=== PATIENT | female | born 1945 | race Caucasian/White ===

== ENCOUNTER 2017-02-02 22:35 | Emergency (ER) | payer MEDICARE, OTHER ==
[2017-02-02] MEDS ORDERED: KETOROLAC TROMETHAMINE INJ/PF 30 MG/1 ML SDV IV ONE (22:54)
--- NOTE | 2017-02-02 22:57 | ER Document Report ---
ED Hip Pain/Injury - General Chief Complaint: Hip Pain Stated Complaint: LEFT LEG PAIN Mode of Arrival: Medic Information source: Patient TRAVEL OUTSIDE OF THE [place] IN LAST 30 DAYS: No - HPI Patient complains to provider of: Hip Notes: Patient arrives with complaints of pain to the low back and left hip that started yesterday. She denies any injuries or falls. She states that the pain has been constant for the last day. Pain is worse when she is sitting up and seems to be better when laying flat. She denies any blood thinners. She denies any fever or redness. She denies any abdominal pain. She denies any nausea, vomiting, diarrhea. She denies any dysuria or hematuria. She denies any bowel or bladder dysfunction. She denies any numbness, tingling, weakness to the lower extremities. No chest pain or shortness of breath. No other complaints at this time. - Related Data Allergies/Adverse Reactions: codeine Allergy (Verified 02/03/17 00:29) latex Allergy (Verified 02/03/17 00:29) Sulfa (Sulfonamide Antibiotics) Allergy (Verified 02/03/17 00:29) Home Medications: Current Home Medications Aspirin [Aspirin 81 mg Chewable Tablet] 81 mg PO DAILY 02/03/17 [History] Atorvastatin Calcium 20 mg PO QHS 02/03/17 [History] Furosemide [Lasix] 40 mg PO DAILY 02/03/17 [History] Gabapentin 300 mg PO BID 02/03/17 [History] Glimepiride [Amaryl] 2 mg PO DAILY 02/03/17 [History] Lisinopril/Hydrochlorothiazide [Lisinopril-Hctz 20-25 mg Tab] 1 tab PO DAILY [History] Metformin HCl 500 mg PO BID 02/03/17 [History] Oxybutynin Chloride [Ditropan Xl] 1 tab PO DAILY 02/03/17 [History] Sertraline HCl 50 mg PO DAILY 02/03/17 [History] Tramadol HCl [Tramadol HCl ER] 100 mg PO DAILY 02/03/17 [History] Past Medical History - Social History Smoking Status: Unknown if Ever Smoked Family History: Reviewed & Not Pertinent Patient has suicidal ideation: No Patient has homicidal ideation: No Renal/ Medical History: Denies: Hx Peritoneal Dialysis Review of Systems - Review of Systems -: Yes All other systems reviewed and negative Physical Exam - Vital signs Vitals: Temp Pulse Resp BP Pulse Ox 98.3 F 88 16 120/76 92 02/02/17 22:48 02/02/17 22:48 02/02/17 22:48 02/02/17 22:48 02/02/17 22:48 - Notes Notes: GENERAL: alert, cooperative, nontoxic, no distress. HEAD: normocephalic, atraumatic EYES: conjunctiva pink without discharge, no external redness or swelling. EARS: no external swelling, no external redness NOSE: atraumatic, no external swelling MOUTH/THROAT: mucous membranes moist and pink, posterior pharynx without erythema, swelling, exudate. No trismus or drooling. NECK: soft, supple, full range of motion, no meningismus. CHEST: no distress, lungs clear and equal throughout. No wheezing, rales, rhonchi. CARDIAC: regular rate and rhythm, no murmur, normal capillary refill, normal pulses. No peripheral edema noted. ABDOMEN: Soft, nontender. No mass, no pulsatile mass. BACK: full range of motion, no CVA tenderness. Tenderness to palpation of the left SI joint and left sciatic notch. EXTREMITIES: full range of motion of all extremities. No redness, no swelling. 5 flexion extension of the lower extremities bilaterally. NEURO: alert and oriented &O3, no focal deficits, positive straight leg raise on the left. Tenderness with palpation of the left SI joint or sciatic notch. Patellar and Achilles tendon reflexes are +2 bilaterally. Patient has normal sensation with no saddle anesthesia. PYSCH: appropriate mood, affect. Patient is cooperative. SKIN: pink, warm, dry, no rash. Course - Re-evaluation Re-evalutation: 02/03/17 00:35 Patient is nontoxic. Stable vitals. The patient has nontraumatic left hip and low back pain. Patient has a history of arthritis. She states that she took some hydrocodone at home which did not help her pain. She was having difficulty getting up and ambulating so she called the squad. Here her x-rays are negative for any acute bony abnormality. She has a benign exam with no sign of cauda equina or epidural abscess/bleeding. She was given Toradol and was able to relate to the bathroom without significant difficulty. The patient states she is actually feeling better and would like to go home. She'll be given a dose of oxycodone here prior to being discharged home. I'll write her a small supply of oxycodone as well as NSAIDs. She was instructed to follow up with her primary care doctor at the next available appointment. Follow up sooner if she develops increased pain, high fever, abdominal pain, difficulty controlling her bowels or bladder, or any further concerns. The patient is noted to have elevated blood pressure during today's emergency department visit. The patient was informed of this finding. The patient was instructed that this may be related to pre-hypertension and requires further evaluation with a primary care provider. The patient has no hypertensive symptoms at this time. The patient's emergency department workup and current diagnosis were explained to the patient and or family. Follow-up instructions were provided. Medications if prescribed were discussed. Instructions for when to return to the emergency department including specific worrisome symptoms were discussed with the patient and/or family. - Vital Signs Vital signs: Temp Pulse Resp BP Pulse Ox 98.3 F 88 16 117/100 H 92 02/02/17 22:48 02/02/17 22:48 02/03/17 00:01 02/03/17 00:01 02/03/17 00:01 - Diagnostic Test Radiology reviewed: Reports reviewed - X-ray of the lumbar spine and left hip show no acute bony abnormality Discharge - Discharge Clinical Impression: Left hip pain Condition: Stable Disposition: HOME, SELF-CARE Instructions: Sciatica ([facility]) Additional Instructions: Take medications as prescribed. Follow up with your doctor at the next available appointment for reevaluation. Follow-up sooner for increased pain, fever, redness, swelling, difficulty controlling her bowels or bladder, or any further concerns. Your blood pressure was elevated during today's visit. Have this rechecked with your doctor. The medication you were prescribed today may cause drowsiness. Do not drive or operate heavy machinery while taking this medication. Prescriptions: Diclofenac Sodium [Voltaren] 75 mg PO BID #20 tablet. Oxycodone HCl/Acetaminophen [Percocet 5-325 mg Tablet] 1 tab PO Q4H PRN #15 tab PRN Reason: Forms: Elevated Blood Pressure
[2017-02-03] MEDS ORDERED: OXYCODONE-ACETAMINOPHEN 5-325 MG TABLET PO ONE (00:32)
[2017-02-03 00:54] VITALS: BP 100/66
== END 2017-02-03 00:54 | disposition home or self-care (01) ==
LOC: ER 22:35
DX: M25.552 Pain in left hip (principal); M54.5 Low back pain; Z88.6 Allergy status to analgesic agent; Z88.2 Allergy status to sulfonamides; Z91.040 Latex allergy status
CPT/HCPCS: 99283; 96374; 73502; 72110; J1885; A9270

== ENCOUNTER → 2018-01-06 | Outpatient (CLI) | payer MEDICARE, OTHER ==
--- NOTE | 2018-01-06 18:59 | WOMENS IMAGING REPORT ---
EXAM DESCRIPTION: BILAT SCREENING MAMMO W/CAD COMPLETED DATE/TIME: 01/06/2018 8:51 am REASON FOR STUDY: ROUTINE SCREENING;Z12.31 Z12.31 ENCNTR SCREEN MAMMOGRAM FOR MALIGNANT NEOPLASM OF TRES COMPARISON: Multiple since 2010 TECHNIQUE: Standard craniocaudal and mediolateral oblique views of each breast recorded using [employer] l acquisition. LIMITATIONS: None. FINDINGS: Findings present which are benign by mammographic criteria. No suspicious masses, calcifi cations or architectural distortion. Pertinent benign findings: Stable benign prominence of retroareolar ducts bilaterally Read with the assistance of CAD. .[facility] - R2 Cenova Version 1.3 .[facility] - R2 Cenova Version 1.3 .[facility] - R2 Cenova Version 2.4 .[facility] [place] - R2 Cenova Version 2.4 .[facility] - R2 [employer] Version 9.2 Benign mammographic findings may include one or more of the following: Smooth masses, popcorn/rim/co arse calcifications, asymmetries, post-procedure changes, and lesions with long-standing stability. IMPRESSION: BENIGN MAMMOGRAPHIC FINDINGS. BIRADS 2 BREAST DENSITY: b. There are scattered areas of fibroglandular density. BIRAD: 2 BENIGN FINDING(S) RECOMMENDATION: ROUTINE SCREENING Please consider bilateral screening tomosynthesis December 2018 COMMENT: The patient has been notified of the results by letter per [place] requirements. Additional no tification policies are in place for contacting patient with suspicious or incomplete findings. Quality ID #[id number]: The [employer] recommends an annual screening mammogram for women aged 40 years or over. This facility utilizes a reminder system to ensure that all patients receive reminder letters, and/or direct phone calls for appointments. This includes reminders for routine scr eening mammograms, diagnostic mammograms, or other Breast Imaging Interventions when appropriate. Th is patient will be placed in the appropriate reminder system. The [employer] ([employer]) has developed recommendations for screening MRI of the breast s in certain patient populations, to be used in conjunction with mammography. Breast MRI surveillanc e may be appropriate for women with more than 20% lifetime risk of developing breast cancer as deter mined by genetic testing, significant family history of the disease, or history of mantle radiation f or Hodgkins Disease. ACR Practice Guidelines 2008. TECHNICAL DOCUMENTATION: FINDING NUMBER: (1) ASSESSMENT: (1) JOB ID: [id number] [employer]- All Rights Reserved Reading location - IP/workstation name: [email or web address]
== END ==
LOC: WI 08:31
DX: Z12.31 Encounter for screening mammogram for malignant neoplasm of breast (principal)
CPT/HCPCS: 77067